=== PATIENT | female | born 1990 | race Caucasian/White ===

== ENCOUNTER 2017-08-25 06:50 | Inpatient (IN) | payer OTHER ==
[~2017-08-25] VITALS: Ht 162 cm; Wt 83.5 kg
[2017-08-25] MEDS ORDERED: PREN-61 PO (08:59)
[2017-08-25] MEDS ORDERED: RINGERS SOLUTION,LACTATED 1,000 ML IV PRN (10:24)
[2017-08-25] MEDS ORDERED: OXYTOCIN 30 UNITS/LACT RINGERS 500 ML IV ONE (10:29)
[2017-08-25] MEDS ORDERED: METOCLOPRAMIDE HCL 5 MG/ML 2 ML VIAL IVP PRN (10:30)
[2017-08-25] MEDS ORDERED: CITRIC ACID/SODIUM CITRATE 30 ML SOLUTION UDCUP PO PRN (10:30)
[2017-08-25] MEDS ORDERED: FentaNYL CITRATE-PF 100 MCG/2 ML VIAL IVP PRN (10:30)
[2017-08-25] MEDS: RINGERS SOLUTION,LACTATED 1,000 ML IV SCH ×2 (10:44→16:45)
[2017-08-25] MEDS ORDERED: OXYTOCIN 30 UNITS/LACT RINGERS 500 ML IV PRN (10:44)
[2017-08-25 11:01] LABS: BASOPHILS % (AUTO) 1.2 % (0.0-2.0); EOSINOPHILS % (AUTO) 0.7 % (1.0-6.0); HEMATOCRIT 31.5 % (36-46); HEMOGLOBIN 10.7 g/dL (12.0-16.0); LYMPHOCYTES % (AUTO) 18.4 % (22.0-44.0); MEAN CORPUSCULAR HEMOGLOBIN 26.9 pg (26.0-34.0); MEAN CORPUSCULAR HGB CONC 33.9 G/dL (31.0-37.0); MEAN CORPUSCULAR VOLUME 79 fL (80-100); MONOCYTES # (AUTO) 0.9 K/uL (0.1-1.0); MONOCYTES % (AUTO) 8.6 % (2.0-9.0); NEUTROPHILS # (AUTO) 7.8 K/uL (1.8-7.7); NEUTROPHILS % (AUTO) 71.1 % (40.0-70.0); PLATELET COUNT (AUTO)-OB 268 K/uL (150-450); RED BLOOD CELL COUNT(AUTO) 3.98 MIL/uL (4.00-5.20); RED CELL DISTRIBUTION WIDTH 13.9 % (11.5-14.5)
[2017-08-25] MEDS ORDERED: ROPIVACAINE HCL/PF 0.2% 100 ML ED ONE (13:03)
[2017-08-25 15:53] VITALS: BP 130/71
[2017-08-25] MEDS ORDERED: GLYCERIN/WITCH HAZEL LEAF 40 PADS JAR TP PRN (17:30)
[2017-08-25] MEDS ORDERED: BENZOCAINE 20%/MENTHOL 56 GM SPRAY CANISTER TP PRN (17:30)
[2017-08-25] MEDS ORDERED: LANOLIN 7 GM OINTMENT TP PRN (17:30)
[2017-08-25] MEDS ORDERED: ACETAMINOPHEN/CODEINE 300-30 MG TABLET PO PRN ×2 (17:30)
[2017-08-25] MEDS: IBUPROFEN 800 MG TABLET PO SCH (18:42)
[2017-08-25] MEDS ORDERED: OXYGEN THERAPY IH SCH (20:00)
[2017-08-25] MEDS: MAGNESIUM HYDROXIDE SUSPENSION 30 ML UDCUP PO SCH (22:24)
[2017-08-26] MEDS: IBUPROFEN 800 MG TABLET PO SCH ×3 (00:42→13:33)
[2017-08-26] MEDS: MAGNESIUM HYDROXIDE SUSPENSION 30 ML UDCUP PO SCH (09:00)
[2017-08-26] MEDS ORDERED: IBUP-2070 PO (09:51)
[2017-08-26] MEDS ORDERED: FERR-89 PO (09:52)
[2017-08-26] MEDS ORDERED: DSS100 PO (09:52)
== END 2017-08-26 17:20 | disposition home or self-care (01) | DRG 775 ==
LOC: OBSVTOIN 06:50 → 4S 06:50
PROVIDERS: ADMIT Obstetrics & Gynecology; ATTEND Obstetrics & Gynecology
PROC: 10E0XZZ Delivery of Products of Conception, External Approach (ICD-10-PCS; principal; 2017-08-25)
PROC: 10907ZC Drainage of Amniotic Fluid, Therapeutic from Products of Conception, Via Natural or Artificial Opening (ICD-10-PCS; 2017-08-25)
PROC: 0W8NXZZ Division of Female Perineum, External Approach (ICD-10-PCS; 2017-08-25)
PROC: 3E0R3BZ Introduction of Anesthetic Agent into Spinal Canal, Percutaneous Approach (ICD-10-PCS; 2017-08-25)
PROC: 00HU33Z Insertion of Infusion Device into Spinal Canal, Percutaneous Approach (ICD-10-PCS; 2017-08-25)
PROC: 4A0HXCZ Measurement of Products of Conception, Cardiac Rate, External Approach (ICD-10-PCS; 2017-08-25)
DX: O41.03X0 Oligohydramnios, third trimester, not applicable or unspecified (principal); O60.23X0 Term delivery with preterm labor, third trimester, not applicable or unspecified; Z3A.39 39 weeks gestation of pregnancy; Z37.0 Single live birth; Z79.899 Other long term (current) drug therapy
CPT/HCPCS: 86850; 86900; 86901; J2590; J2795; J7120